=== PATIENT | male | born 1985 | race Caucasian/White ===

== ENCOUNTER 2017-07-15 13:17 | Emergency (ER) | payer SELFPAY ==
[2017-07-15] MEDS ORDERED: cefTRIAXone 1,000 MG in Lidocaine 1% 4 ML IM ONE (13:41)
[2017-07-15] MEDS ORDERED: Lidocaine 2% Viscous Solution 15 ML Cup PO ONE (13:42)
[2017-07-15] MEDS ORDERED: Benzocaine 20% Topical Spray UD MUCMEM ONE (13:42)
--- NOTE | 2017-07-15 13:54 | EDM.PDOC ---
ED HPI GENERAL MEDICAL PROBLEM - General Chief Complaint: General Stated Complaint: TOOTHACHE Time Seen by Provider: 07/15/17 13:22 Source of Information: Reports: Patient History Limitations: Reports: No Limitations - History of Present Illness INITIAL COMMENTS - FREE TEXT/NARRATIVE: HISTORY AND PHYSICAL: History of present illness: Patient is a 32-year-old male who presents to the emergency room today with complaints of left lower dental pain x 1 month. He states he recently moved up here from [place] and since that time has had left lower dental pain, swelling, and diagnosed with an abscess. Will be his second visit to the emergency room. Last week he was placed on amoxicillin and given a limited amount of pain medication. He states he completed both medications and since that time has had no relief. Today he is requesting that we extract 3 teeth from his posterior molar. I did educate the patient that we do not remove teeth in an emergency room setting. He currently does not have a dentist. Denies any fever, chills, chest pain, shortness of breath, abdominal pain, nausea, vomiting or diarrhea. Review of systems: As per history of present illness and below otherwise all systems reviewed and negative. Past medical history: As per history of present illness and as reviewed below otherwise noncontributory. Surgical history: As per history of present illness and as reviewed below otherwise noncontributory. Social history: No reported history of drug or alcohol abuse. Family history: As per history of present illness and as reviewed below otherwise noncontributory. Physical exam: Gen.: Well-developed and well-nourished 32-year-old male. Appears nontoxic and in no acute distress. Alert and oriented. HEENT: Atraumatic, normocephalic, pupils reactive, negative for conjunctival pallor or scleral icterus, left eye does not track with the right (normal variance- per patient), mucous membranes moist - erythema and mild swelling noted to the left posterior molars on the bottom jaw line. Dental caries noted. No lymphadenopathy, throat clear, neck supple, nontender, trachea midline. Lungs: Clear to auscultation, breath sounds equal bilaterally, chest nontender. Heart: S1S2, regular rate and rhythm without any overt murmurs Abdomen: Soft, nondistended, nontender. Negative for masses or hepatosplenomegaly. Negative for costovertebral tenderness. Pelvis: Stable nontender. Genitourinary: Deferred. Rectal: Deferred. Extremities: Atraumatic, negative for cords or calf pain. Neurovascular unremarkable. Neuro: Awake, alert, oriented. Cranial nerves II through XII unremarkable. Cerebellum unremarkable. Motor and sensory unremarkable throughout. Exam nonfocal. Patient was previously on amoxicillin and has completed this round of antibiotics. Today is requesting a shot to "help him get over the hump". I will give him 1 g of Rocephin IM and then prescribed pen VK and norco. Diagnostics: [] Therapeutics: Rocephin, dental balls Impression: Dental abscess Plan: 1. Please take your antibiotic as prescribed. Take the full 10 days. 2. Take your [place] as directed. Do not take this medication while driving or needing to be functioning at work as this is a narcotic and may cause drowsiness. He may take ibuprofen during daytime hours. The topical "tooth balls " may be used during the day as a numbing agent. Please do not swallow this as it is hot. 3. As we discussed you need definitive care with a dentist. A list of local dentists have been provided for you. Please create and attend an appointment to have a further evaluation. 4. Return to the ED as needed and as discussed. Definitive disposition and diagnosis as appropriate pending reevaluation and review of above. Duration: Week(s): Location: Reports: Face - Related Data Allergies Allergy/AdvReac Type Severity Reaction Status Date / Time No Known Allergies Allergy Verified 07/15/17 13:34 Home Meds: Home Meds . [No Known Home Meds] 07/15/17 [History] ED ROS GENERAL - Review of Systems Review Of Systems: ROS reveals no pertinent complaints other than HPI. ED EXAM, GENERAL - Physical Exam Exam: See Below (See dictation) Course - Vital Signs Last Recorded V/S: Last Vital Signs Temp 37.1 C 07/15/17 13:34 Pulse 100 07/15/17 13:34 Resp 12 07/15/17 13:34 BP 132/89 07/15/17 13:34 Pulse Ox 100 07/15/17 13:34 - Orders/Labs/Meds Meds: Medications Discontinued Medications Generic Name Dose Route Start Last Admin Trade Name Freq PRN Reason Stop Dose Admin Benzocaine 2 each 07/15/17 13:42 Hurricaine One 20% MUCMEM 07/15/17 13:43 ONETIME ONE Ceftriaxone Sodium 1,000 mg/ 4 mls @ 4 mls/sec 07/15/17 13:41 Lidocaine HCl IM 07/15/17 13:42 ONETIME ONE Lidocaine HCl 15 ml 07/15/17 13:42 Xylocaine 2% Viscous PO 07/15/17 13:43 ONETIME ONE Departure - Departure Time of Disposition: 13:54 Disposition: Home, Self-Care 01 Clinical Impression: Dental abscess - Discharge Information Referrals: PCP,None [Primary Care Provider] - Additional Instructions: My general discharge The following information is given to patients seen in the emergency department who are being discharged to home. This information is to outline your options for follow-up care. We provide all patients seen in our emergency department with a follow-up referral. The need for follow-up, as well as the timing and circumstances, are variable depending upon the specifics of your emergency department visit. If you don't have a primary care physician on staff, we will provide you with a referral. We always advise you to contact your personal physician following an emergency department visit to inform them of the circumstance of the visit and for follow-up with them and/or the need for any referrals to a consulting specialist. The emergency department will also refer you to a specialist when appropriate. This referral assures that you have the opportunity for follow-up care with a specialist. All of these measure are taken in an effort to provide you with optimal care, which includes your follow-up. Under all circumstances we always encourage you to contact your private physician who remains a resource for coordinating your care. When calling for follow-up care, please make the office aware that this follow-up is from your recent emergency room visit. If for any reason you are refused follow-up, please contact the [facility] Emergency Department at and asked to speak to the emergency department charge nurse. [facility] [address] [place] [id number] 1. Please take your antibiotic as prescribed. Take the full 10 days. 2. Take your [place] as directed. Do not take this medication while driving or needing to be functioning at work as this is a narcotic and may cause drowsiness. He may take ibuprofen during daytime hours. The topical "tooth balls " may be used during the day as a numbing agent. Please do not swallow this as it is hot. 3. As we discussed you need definitive care with a dentist. A list of local dentists have been provided for you. Please create and attend an appointment to have a further evaluation. 4. Return to the ED as needed and as discussed.
== END 2017-07-15 14:23 | disposition home or self-care (01) ==
LOC: MW.ED 13:17
DX: K04.7 Periapical abscess without sinus (principal); K02.9 Dental caries, unspecified
CPT/HCPCS: 99282; A9270; J0696; 99284